=== PATIENT | female | born 1990 | race Caucasian/White ===

== ENCOUNTER 2016-10-16 21:36 | Emergency (ER) | payer BC, OTHER ==
[~2016-10-16] VITALS: Ht 157.5 cm; Wt 99.3 kg
[~2016-10-16 21:36] MED LIST: PRILOSEC40 MG PO
[2016-10-16 21:49] VITALS: BP 113/68
--- NOTE | 2016-10-16 23:48 | NUR ---
Patient to OF2
--- NOTE | 2016-10-16 23:55 | NUR ---
26 Y/O HERE W/C/O rt eye pain, possibly something in eye from playing in park with kids.PT STATES HAS A HX OF GLAUCOMA TO R EYE. EYE APPEARS SLIGHTLY RED, PT STATES TO FEEL A BURNING SENSATION ON AFFECTED EYE. ER MD NOTIFIED.
--- NOTE | 2016-10-17 00:07 | NUR ---
Dr. Calvo evaluating patient at bedside.
--- NOTE | 2016-10-17 00:10 | NUR ---
Patient ambulated to bed 03.
[2016-10-17] MEDS ORDERED: TETRACAINE 0.5% OPTH SOL 2 ML BTL OP ONE (00:15)
[2016-10-17] MEDS ORDERED: FLUORESCEIN OPTH STRIP 1 MG OP ONE (00:15)
[2016-10-17 01:13] VITALS: BP 113/68
--- NOTE | 2016-10-17 01:13 | NUR ---
Patient discharged with v/s stable. Written and verbal after care instructions given and explained. Patient alert, oriented and verbalized understanding of instructions. Ambulatory with steady gait. All questions addressed prior to discharge. ID band removed. Patient advised to follow up with PMD. Rx of TOBRAMYCIN given. Patient educated on indication of medication including possible reaction and side effects. Opportunity to ask questions provided and answered.
== END 2016-10-17 01:13 | disposition home or self-care (01) ==
LOC: MED 21:36
DX: S00.211A Abrasion of right eyelid and periocular area, initial encounter (principal); X58.XXXA Exposure to other specified factors, initial encounter; Y93.89 Activity, other specified; Y92.89 Other specified places as the place of occurrence of the external cause; Y99.8 Other external cause status

== ENCOUNTER 2016-11-30 13:20 | Emergency (ER) | payer OTHER ==
[~2016-11-30] VITALS: Ht 157.5 cm; Wt 102.1 kg
[2016-11-30 13:31] VITALS: BP 126/78
[2016-11-30] MEDS ORDERED: ONDANSETRON 4 MG ODT PO ONE (14:50)
--- NOTE | 2016-11-30 14:58 | NUR ---
PT AMBULATED TO ER BED #4.
--- NOTE | 2016-11-30 15:03 | NUR ---
26/F PRESENT TO ER C/O NVD x 3DAYS. PAIN 5/10 ACHING ABD REGION NON-RADIATING. PT STATES ALL HER FAMILY MEMBER HAVE SAME S/SX FOR 3-4 DAYS NOW. AAOx4, PERRLA, BREATHING EVEN AND UNLABORED. ERMD NOTIFIED OF PATIENT STATUS.
--- NOTE | 2016-11-30 15:05 | NUR ---
Patient being evaluated by physician at bedside.
--- NOTE | 2016-11-30 15:20 | NUR ---
PT TAKEN TO RADIOLOGY VIA WHEELCHAIR BY KAYAK.
--- NOTE | 2016-11-30 15:28 | NUR ---
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
--- NOTE | 2016-11-30 16:31 | NUR ---
PT DENIES NAUSEA AND NO REPEATED EMESIS SINCE MEDICATED Patient discharged with v/s stable. Written and verbal after care instructions given and explained. Patient alert, oriented and verbalized understanding of instructions. Ambulatory with steady gait. All questions addressed prior to discharge. ID band removed. Patient advised to follow up with PMD. Rx of ZOFRAN given. Patient educated on indication of medication including possible reaction and side effects. Opportunity to ask questions provided and answered.
[2016-11-30 16:40] VITALS: BP 130/76
== END 2016-11-30 16:40 | disposition home or self-care (01) ==
LOC: MED 13:20
DX: R11.2 Nausea with vomiting, unspecified (principal)
CPT/HCPCS: 74000; 81002; 81025; 99283; S0119

== ENCOUNTER 2016-12-03 23:17 | Emergency (ER) | payer OTHER ==
[~2016-12-03] VITALS: Ht 157.5 cm; Wt 98.0 kg
[~2016-12-03 23:17] MED LIST changes: +OMEP40EC1 PO; -PRILOSEC40 MG PO
[2016-12-03 23:20] VITALS: BP 117/79
--- NOTE | 2016-12-04 00:15 | NUR ---
PT BIB SELF TO ED WITH C/O LEFT FOOT PAIN X 2 WEEKS. PT STATES HX OF FOOT PAIN/DRY SKIN-PT STS X 5YEARS. DENIES N/V/D; SKIN IS PINK/WARM/DRY; AAOX4 WITH EVEN AND STEADY GAIT; LUNGS CLEAR BL; HR EVEN AND REGULAR; PT DENIES ANY FEVER, CP, SOB, OR COUGH AT THIS TIME; PATIENT STATES PAIN OF 5/10 AT THIS TIME WHEN STANDING; VSS; PATIENT POSITIONED FOR COMFORT; HOB ELEVATED; BEDRAILS UP X2; BED DOWN. ER MD MADE AWARE OF PT STATUS.
--- NOTE | 2016-12-04 00:28 | NUR ---
Patient being evaluated by physician at bedside.
[2016-12-04 00:40] VITALS: BP 110/71
--- NOTE | 2016-12-04 00:41 | NUR ---
Patient discharged with v/s stable. Written and verbal after care instructions given and explained. Patient alert, oriented and verbalized understanding of instructions. Ambulatory with steady gait. All questions addressed prior to discharge. ID band removed. Patient advised to follow up with PMD. Rx of BACITRACIN 500UNIT/GM TOPICAL OINTMENT, NAPROSYN 500 MG given. Patient educated on indication of medication including possible reaction and side effects. Opportunity to ask questions provided and answered.
== END 2016-12-04 00:40 | disposition home or self-care (01) ==
LOC: MED 23:17
DX: L84 Corns and callosities (principal)
CPT/HCPCS: 99283

== ENCOUNTER 2017-04-26 21:50 | Emergency (ER) | payer OTHER ==
[~2017-04-26] VITALS: Ht 157.5 cm; Wt 100.8 kg
[2017-04-26 22:06] VITALS: BP 136/96
--- NOTE | 2017-04-26 23:45 | NUR ---
AMBULATED TO ER OF2
--- NOTE | 2017-04-26 23:47 | NUR ---
PT BIB FAMILY C/O SWOLLEN NECK PAIN OFF AND ON X MTHS-GOT WORSE TODAY. CAP REFILL-IMM, FULL A.R.O.M. NOTED. PT DENIES N/V/D; SKIN IS INTACT, PINK/WARM/DRY; AAOX4, PERRL, WITH EVEN AND STEADY GAIT; LUNGS CLEAR BL, BREATHING UNLABORED; HR EVEN AND REGULAR, BL PERIPHERAL PULSES PRESENT; BS ACTIVE X4, NO TENDERNESS TO PALPATION. PT DENIES ANY FEVER, CP, SOB, OR COUGH AT THIS TIME; PT STATES 5/10 PAIN AT THIS TIME; VSS; PATIENT POSITIONED FOR COMFORT; HOB ELEVATED; BEDRAILS UP X2; BED DOWN.
--- NOTE | 2017-04-27 00:32 | NUR ---
PT SENT TO XRAY WITH [facility] VIA W/C AAOX4 AT THIS TIME
--- NOTE | 2017-04-27 00:41 | NUR ---
PT BACK FROM XRAY
[2017-04-27 01:07] VITALS: BP 136/96
== END 2017-04-27 01:07 | disposition home or self-care (01) ==
LOC: MED 21:50
DX: M54.2 Cervicalgia (principal); R22.1 Localized swelling, mass and lump, neck; Z88.1 Allergy status to other antibiotic agents
CPT/HCPCS: 70360; 81002; 81025; 99284

== ENCOUNTER 2017-05-13 07:20 | Emergency (ER) | payer OTHER ==
[~2017-05-13] VITALS: Ht 157.5 cm; Wt 98.4 kg
[2017-05-13 07:28] VITALS: BP 126/85
--- NOTE | 2017-05-13 07:32 | NUR ---
26 F BIB FAMILY C/O W/C/O 03/11 "SHARP" NONRADIATING THROAT PAIN AND "ALL OVER BODY" PAIN; PT ALSO C/O VOMITING AND NON PRODUCTIVE COUGH X3 DAYS; SKIN IS PINK/WARM/DRY; AOX4 WITH EVEN AND STEADY GAIT; LUNGS CLEAR BL; RR ARE EVEN AND UNLABORED; VSS; PATIENT POSITIONED FOR COMFORT; HOB ELEVATED; BED DOWN. ER MD MADE AWARE OF PT STATUS.
--- NOTE | 2017-05-13 07:33 | NUR ---
Patient to bed 6
[2017-05-13 07:47] VITALS: BP 126/85
--- NOTE | 2017-05-13 07:47 | NUR ---
Patient discharged with v/s stable. Written and verbal after care instructions given and explained. Patient alert, oriented and verbalized understanding of instructions. Ambulatory with to car. All questions addressed prior to discharge. ID band removed. Patient advised to follow up with PMD. Rx of Prednisone and Guaiatussin given. Patient educated on indication of medication including possible reaction and side effects. Opportunity to ask questions provided and answered.
== END 2017-05-13 07:47 | disposition home or self-care (01) ==
LOC: MED 07:20
DX: J20.9 Acute bronchitis, unspecified (principal); Z79.899 Other long term (current) drug therapy; Z88.1 Allergy status to other antibiotic agents
CPT/HCPCS: 99283

== ENCOUNTER 2017-10-27 15:37 | Emergency (ER) | payer OTHER ==
[~2017-10-27] VITALS: Ht 157.5 cm; Wt 94.9 kg
[2017-10-27 15:55] VITALS: BP 129/84
--- NOTE | 2017-10-27 16:05 | NUR ---
PATIENT AMBULATED TO [facility]
[2017-10-27] MEDS ORDERED: ONDANSETRON 4 MG ODT PO ONE (16:10)
--- NOTE | 2017-10-27 16:10 | NUR ---
PATIENT PRESENTS TO ED WITH C/O VOMITING, THROAT PAIN, AND COUGH X 8 DAYS . NO ACTIVE VOMITING AT THIS TIME. SKIN IS PINK/WARM/DRY; AAOX4 WITH EVEN AND STEADY GAIT; LUNGS CLEAR BL; HR EVEN AND REGULAR; PT DENIES ANY FEVER, CP, SOB, AT THIS TIME; PATIENT STATES PAIN OF 9/10 AT THIS TIME; VSS; PATIENT POSITIONED FOR COMFORT; HOB ELEVATED; BEDRAILS UP X2; BED DOWN. ER MD MADE AWARE OF PT STATUS.
--- NOTE | 2017-10-27 17:10 | NUR ---
Patient discharged with v/s stable. Written and verbal after care instructions given and explained. Patient alert, oriented and verbalized understanding of instructions. Ambulatory with steady gait. All questions addressed prior to discharge. ID band removed. Patient advised to follow up with PMD. Rx of AZYTHROMYCIN given. Patient educated on indication of medication including possible reaction and side effects. Opportunity to ask questions provided and answered.
[2017-10-27 17:22] VITALS: BP 134/81
== END 2017-10-27 17:10 | disposition home or self-care (01) ==
LOC: MED 15:37
DX: J40 Bronchitis, not specified as acute or chronic (principal); Z79.899 Other long term (current) drug therapy; Z88.1 Allergy status to other antibiotic agents
CPT/HCPCS: 71045; 81002; 81025; 99283; S0119

== ENCOUNTER 2018-06-27 15:14 | Emergency (ER) | payer OTHER ==
[~2018-06-27] VITALS: Ht 157.5 cm; Wt 86.2 kg
--- NOTE | 2018-06-27 15:20 | NUR ---
PT AMBULATED TO ER BED 10
[2018-06-27 15:24] VITALS: BP 139/77
--- NOTE | 2018-06-27 15:32 | NUR ---
XRAY AT BEDSIDE
[2018-06-27] MEDS ORDERED: KETOROLAC 60 MG/2 ML VIAL IM ONE (15:40)
--- NOTE | 2018-06-27 15:40 | NUR ---
PT C/O R WRIST PAIN S/P BOWLING YESTERDAY. 10 PAIN CMS INTACT. NO OTHER COMPALINTS AT THIS TIME. VSS.
[2018-06-27 16:25] VITALS: BP 129/79
--- NOTE | 2018-06-27 16:26 | NUR ---
Patient discharged with v/s stable. Written and verbal after care instructions given and explained. Patient alert, oriented and verbalized understanding of instructions. Ambulatory with steady gait. All questions addressed prior to discharge. ID band removed. Patient advised to follow up with PMD. Rx of NAPROXYN given. Patient educated on indication of medication including possible reaction and side effects. Opportunity to ask questions provided and answered.
== END 2018-06-27 16:26 | disposition home or self-care (01) ==
LOC: MED 15:14
DX: S63.501A Unspecified sprain of right wrist, initial encounter (principal); Z88.1 Allergy status to other antibiotic agents; Z79.899 Other long term (current) drug therapy; X58.XXXA Exposure to other specified factors, initial encounter; Y93.69 Activity, other involving other sports and athletics played as a team or group; Y92.89 Other specified places as the place of occurrence of the external cause; Y99.8 Other external cause status
CPT/HCPCS: 29125; 73110; 96372; 99283; J1885; Q0092

== ENCOUNTER 2019-02-12 14:27 | Emergency (ER) | payer OTHER ==
[~2019-02-12] VITALS: Ht 157.5 cm; Wt 90.7 kg
[2019-02-12 14:32] VITALS: BP 122/69
--- NOTE | 2019-02-12 14:45 | NUR ---
PT BIB FAMILY C/O BACK PAIN X3 DAYS. PT REPORTS SHOOTING MIDDLE BACK PAIN THAT RADIATES DOWN TO LOWER BACK AT 7/10 THAT INCREASES WITH MOVEMENT. PT TX W/ ADVIL WITH SOME RELIEF. PT DENIES TRAUMA OR INJURY, NO SWELLING, REDNESS, BRUISING OR DEFORMITY PRESENT. PT THINKS ITS FROM REPEATED LIFTING OF HEAVY OBJECTS AT WORK. MEDHX: PTSD, IBSD
[2019-02-12] MEDS ORDERED: KETOROLAC 60 MG/2 ML VIAL IM ONE (14:55)
[2019-02-12 15:25] VITALS: BP 122/69
--- NOTE | 2019-02-12 15:25 | NUR ---
Patient discharged with v/s stable. Written and verbal after care instructions given and explained. Patient alert, oriented and verbalized understanding of instructions. Ambulatory with steady gait. All questions addressed prior to discharge. ID band removed. Patient advised to follow up with PMD. Rx of MOTRIN AND NORCO given. Patient educated on indication of medication including possible reaction and side effects. Opportunity to ask questions provided and answered.
== END 2019-02-12 15:25 | disposition home or self-care (01) ==
LOC: MED 14:27
DX: M54.5 Low back pain (principal); Z88.1 Allergy status to other antibiotic agents; Z79.899 Other long term (current) drug therapy; Z98.890 Other specified postprocedural states
CPT/HCPCS: 81002; 81025; 96372; 99283; J1885

== ENCOUNTER 2019-02-23 01:15 | Emergency (ER) | payer OTHER ==
[~2019-02-23] VITALS: Ht 157.5 cm; Wt 93.4 kg
[2019-02-23 01:20] VITALS: BP 124/77
--- NOTE | 2019-02-23 01:35 | NUR ---
PT AMBULATED TO ROOM 2
--- NOTE | 2019-02-23 01:37 | NUR ---
ER-MD CAME BY BEDSIDE TO EVALUATE PT.
--- NOTE | 2019-02-23 01:55 | NUR ---
PORTABLE CXR DONE.
--- NOTE | 2019-02-23 02:28 | NUR ---
DISCHARGED STABLE. PRESCRIPTION,VERBAL AND WRITTEN AFTERCARE INSTRUCTIONS GIVEN. VERBALIZED UNDERSTANDING.
[2019-02-23 03:21] VITALS: BP 122/72
== END 2019-02-23 02:28 | disposition home or self-care (01) ==
LOC: MED 01:15
DX: J30.9 Allergic rhinitis, unspecified (principal); R11.10 Vomiting, unspecified; R42 Dizziness and giddiness; Z88.1 Allergy status to other antibiotic agents; Z79.899 Other long term (current) drug therapy
CPT/HCPCS: 71045; 99283; Q0092

== ENCOUNTER 2019-03-09 22:10 | Emergency (ER) | payer OTHER ==
[~2019-03-09] VITALS: Ht 157.5 cm; Wt 90.7 kg
[2019-03-09 22:14] VITALS: BP 119/62
--- NOTE | 2019-03-09 22:14 | NUR ---
PT AMBULATED SELF TO BED #11
--- NOTE | 2019-03-09 22:30 | NUR ---
28 Y/O FEMALE PRESENTS TO ED, C/O L GREAT TOE PAIN. 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 L GREAT TO HAS REDNESS AND SWELLING, LIMITED ROM ON L TOE. C/O PAIN AMBULATING, PT ABLE TO AMBULATE SELF WITH SLOW STEADY GAIT. BILATERAL STRONG PEDAL PULSES. PT HAS HX OF FUNGAL FOOT INFECTION, STATES BEING NON COMPLIANT WITH FUNGAL MEDICATIONS FOR THE PAST 5 MONTHS. PT HAS HX OF IBS AND PTSD. PT VSS. ERMED AWARE. WILL CONTINUE TO MONITOR.
[2019-03-09] MEDS ORDERED: LIDOCAINE 1% 500 MG/50 ML VIAL INJ SCH (23:10)
[2019-03-09] MEDS ORDERED: LIDOCAINE MPF 1% - 5 mL VIAL 15 ML ONE (23:27)
[2019-03-09] MEDS ORDERED: IBUPROFEN 800 MG TAB PO ONE (23:40)
[2019-03-09 23:51] VITALS: BP 117/86
--- NOTE | 2019-03-09 23:51 | NUR ---
PT DISCHARGED WITH PAPERWORK. RX MOTRIN AND KEFLEX. EDUCATED PT REGARDING MEDICATIONS AND SIDE EFFECTS. EDUCATED PT REGARDING DISCHARGE DIAGNOSIS. PT VEBALIZED UNDERSTANDING OF TEACHING. TOLD PT TO FOLLOW UP WITH PCP AND WHEN TO RETURN TO ED. PT VSS. ALL QUESTIONS ANSWERED.
== END 2019-03-09 23:51 | disposition home or self-care (01) ==
LOC: MED 22:10
DX: L60.0 Ingrowing nail (principal); K58.9 Irritable bowel syndrome, unspecified; F43.10 Post-traumatic stress disorder, unspecified; Z88.1 Allergy status to other antibiotic agents; Z79.899 Other long term (current) drug therapy
CPT/HCPCS: 11730; 99283; J2001

== ENCOUNTER 2019-07-27 20:12 | Emergency (ER) | payer OTHER ==
[~2019-07-27 20:12] MED LIST changes: -OMEP40EC1 PO; +OMEP40EC24 PO
--- NOTE | 2019-07-27 20:25 | NUR ---
PATIENT CALLED [facility], NO RESPONSE PATIENT LEFT WITHOUT BEING SEEN BY DR. PRADO. NO FURTHER CARE PROVIDED FOR PATIENT.
--- NOTE | 2019-07-27 20:30 | NUR ---
CALLED FOR THE SECOND TIME, NO RESPONSE
--- NOTE | 2019-07-27 20:35 | NUR ---
CALLED FOR THE THIRD TIME , NO RESPONSE
== END 2019-07-27 20:25 | disposition left against medical advice (07) ==
LOC: MED 20:12
DX: Z53.21 Procedure and treatment not carried out due to patient leaving prior to being seen by health care provider (principal)

== ENCOUNTER 2022-09-28 14:52 | Emergency (ER) | payer OTHER ==
[~2022-09-28] VITALS: Ht 157.5 cm; Wt 102.1 kg
[2022-09-28 15:36] VITALS: BP 124/78
[2022-09-28] MEDS ORDERED: PERM59LI TP (15:59)
--- NOTE | 2022-09-28 16:08 | NUR ---
Patient discharged with v/s stable. Written and verbal after care instructions FOR LICE given and explained. Patient alert, oriented and verbalized understanding of instructions. Ambulatory with steady gait. All questions addressed prior to discharge. ID band removed. Patient advised to follow up with PMD. Rx of PERMETHRIN given. Opportunity to ask questions provided and answered.
== END 2022-09-28 16:08 | disposition home or self-care (01) ==
LOC: MED 14:52
DX: B85.0 Pediculosis due to Pediculus humanus capitis (principal); Z79.899 Other long term (current) drug therapy; Z88.0 Allergy status to penicillin
CPT/HCPCS: 99282

== ENCOUNTER 2023-10-12 16:19 | Emergency (ER) | payer OTHER ==
[~2023-10-12] VITALS: Ht 157.5 cm; Wt 95.3 kg
[~2023-10-12 16:19] MED LIST changes: +PERM59LI TP
[2023-10-12 16:49] VITALS: BP 123/70; PULSE 87; RESP 18; TEMP 97.5; O2SAT 99
== END 2023-10-12 17:52 | disposition home or self-care (01) ==
LOC: MED 16:19
DX: H92.03 Otalgia, bilateral (principal); J45.909 Unspecified asthma, uncomplicated; E11.9 Type 2 diabetes mellitus without complications; Z88.1 Allergy status to other antibiotic agents; Z79.4 Long term (current) use of insulin; Z79.899 Other long term (current) drug therapy
CPT/HCPCS: 99281